=== PATIENT | male | born 1970 | race African-American/Black ===

== ENCOUNTER 2017-05-18 17:38 | Emergency (ER) | payer MEDICAID, OTHER ==
[~2017-05-18] VITALS: Ht 167.6 cm; Wt 81.8 kg
[~2017-05-18 17:38] MED LIST: IBUP-24 PO
[2017-05-18] MEDS ORDERED: epiNEPHrine 1 mg/ml inj IM STA (17:49)
[2017-05-18] MEDS ORDERED: dexamethasone sod phosphate 10mg/ml inj IM STA (17:49)
[2017-05-18] MEDS ORDERED: diphenhydrAMINE 50 mg/ml inj IV ONE (17:50)
[2017-05-18] MEDS ORDERED: normal saline 1000ML IV soln IV ONE (17:50)
[2017-05-18 18:15] LABS: BASOPHILS % (AUTO) 0.1 % (0-1); EOSINOPHILS # (AUTO) 0.1 X10'3 (0-0.9); EOSINOPHILS % (AUTO) 0.5 % (0-6); HEMATOCRIT 41.7 % (42.0-52.0); HEMOGLOBIN 14.5 g/dl (14.0-17.9); LYMPHOCYTES # (AUTO) 2.9 X10'3 (1.1-4.8); LYMPHOCYTES % (AUTO) 24.6 % (21-51); MEAN CORPUSCULAR HEMOGLOBIN 33.5 PG (27.0-31.0); MEAN CORPUSCULAR HGB CONC 34.7 % (33.0-36.5); MEAN CORPUSCULAR VOLUME 96.6 FL (78-98); MEAN PLATELET VOLUME 7.5 FL (7.4-10.4); MONOCYTES # (AUTO) 0.3 X10'3 (0-0.9); MONOCYTES % (AUTO) 2.7 % (2-12); NEUTROPHILS # (AUTO) 8.5 X10'3 (1.8-7.7); NEUTROPHILS % (AUTO) 72.1 % (42-75); PLATELET COUNT 290 X10'3 (140-440); RED BLOOD COUNT 4.32 X10'6 (4.70-6.10); RED CELL DISTRIBUTION WIDTH 13.2 % (11.5-14.5); WHITE BLOOD COUNT 11.7 X10'3 (4.5-11.0)
[2017-05-18] MEDS ORDERED: famotidine/PF 10 mg/ml inj IV ONE (18:20)
[2017-05-18 18:23] LABS: PROTHROMBIN TIME 10.7 SECONDS (9.0-12.0)
[2017-05-18 18:29] LABS: ALANINE AMINOTRANSFERASE 29 U/L (12-78); ALBUMIN 4.4 G/DL (3.4-5.0); ALBUMIN/GLOBULIN RATIO 1.3 (1.1-1.5); ALKALINE PHOSPHATASE 65 IU/L (46-116); ANION GAP 11 (8-16); ASPARTATE AMINO TRANSFERASE 62 U/L (10-37); BILIRUBIN,TOTAL 0.5 MG/DL (0.1-1.0); BLOOD UREA NITROGEN 15 MG/DL (7-18); BUN/CREATININE RATIO 13.6 (5.4-32.0); CALCIUM 9.2 MG/DL (8.5-10.1); CHLORIDE 105 MMOL/L (99-107); GLUCOSE 102 MG/DL (70-104); POTASSIUM 3.5 MMOL/L (3.5-5.1); SODIUM 142 MMOL/L (135-145); TOTAL CARBON DIOXIDE 25.6 MMOL/L (24-32); TOTAL PROTEIN 7.9 G/DL (6.4-8.2); eGFR 88 ML/MIN
[2017-05-18 21:46] VITALS: BP 145/85
== END 2017-05-18 20:05 | disposition short-term general hospital (02) ==
LOC: ER 17:39
DX: T78.2XXA Anaphylactic shock, unspecified, initial encounter (principal); R60.9 Edema, unspecified; Z79.899 Other long term (current) drug therapy
CPT/HCPCS: 36415; 80053; 85025; 85610; 96361; 96372; 96374; 96375; 99291; 99292; J0171; J1100; J1200; J3490; J7030

== ENCOUNTER 2017-08-27 19:38 | Emergency (ER) | payer MEDICAID, OTHER ==
[~2017-08-27] VITALS: Ht 170.2 cm; Wt 76.0 kg
[2017-08-27] MEDS ORDERED: AMOX-580 PO (21:13)
[2017-08-27 21:40] VITALS: BP 132/76
== END 2017-08-27 21:43 | disposition home or self-care (01) ==
LOC: ER 19:39
DX: K04.7 Periapical abscess without sinus (principal)
CPT/HCPCS: 99283